=== PATIENT | female | born 1935 | race Caucasian/White ===

== ENCOUNTER 2022-01-03 12:40 | Emergency (ER) | payer OTHER ==
--- OUTSIDE RECORDS SUMMARY | 2022-01-03 12:43 | XMS REPORT | Continuity of Care Document ---
:1935 Author Organization [facility] t Address [address] [place] [address] Care Team Providers Name Role Phone Saroj LAMBERT Primary Care Physician Unavailable Benigno Attending Clinician Unavailable Donny Attending Clinician Unavailable RADIOLOGY Attending Clinician Unavailable Benigno Admitting Clinician Unavailable Donny Admitting Clinician Unavailable Saroj LAMBERT Admitting Clinician Unavailable Payers Payer Name Policy Type Policy Number Effective Date Expiration Date S luis antonio AETNA (MEDICARE [id number] 2020 REPLACEMENT HMO) 00:00:00 AETNA (HMO) [id number] 2020 00:00:00 [employer]ET[employer] MEDICARE ADV [id number] 2014 2021 00:00:00 00:00:00 Problems Condition Condition Condition Status Onset Resolution Last Treating Co mments Source Name Details Category Date Date Treatment Clinician Date COVID-19 Covid-19 Problem Active [place] [facility] 7-30 Family 00:00: Practic 00 e Multiple Multiple Problem Active [place] [facility] complicati Complicati 6-28 Fa lonny ons due to ons Due to 00:00: Pr actic type 2 Type 2 00 e diabetes Diabetes mellitus Mellitus Impaired Impaired Problem Active [place] [facility] mobility Mobility 5-03 Family 00:00: Practic 00 e Peripheral Peripheral Problem Active [facility] vascular Vascular 1-13 Family disease Disease 00:00: Practic 00 e Chronic Chronic Problem Active 2018-[address] [facility] kidney Kidney 0-30 Family disease Disease 00:00: Practic due to Due to 00 e hypertensi Hypertensi on on Type 2 Type 2 Problem Active 2018-[address] [facility] diabetes Diabetes 0-30 Family mellitus Mellitus 00:00: Practi c with with 00 e peripheral Peripheral angiopathy Angiopathy Chronic Chronic Problem Active 2018-[address] 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 kidney Kidney 2-20 Family disease Disease 00:00: Practic stage 3 Stage 3 00 e Gastroesop Gastroesop Problem Active [facility] hageal hageal 2-19 Family reflux Reflux 00:00: Practic disease Disease 00 e Cobalamin Cobalamin Problem Active Lori perla deficiency Deficiency 8-09 Fa lonny 00:00: Practic 00 e Hyperlipid Hyperlipid Problem Active [facility] emia emia 4-18 Family 00:00: Practic 00 e Gout Gout Problem Active [facility] 4-18 Family 00:00: Practic 00 e Allergies, Adverse Reactions, Alerts Allergy Allergy Status Severity Reaction(s) Onset Inactive Treating Comm ents Source Name Type Date Date Clinician STREPTOM DRUG Active ITCHING [facility] 3-18 ity of 00:00: [place] [id number] [facility] Streptom Allergy Active [facility] to Family substanc Practic e e Social History Smoking Status Start Date Stop Date Source Former Smoker [facility] Medications Ordered Filled Start Stop Current Ordering Indication Dosage Frequency Signature Comments Components Source Medication Medication Date Date Medication? Clinician (SIG) Name Name allopurinol allopurinol No allopurino [place] 300 mg 300 mg l 300 mg Family tablet TAKE tablet TAKE tablet Practic 1 TABLET BY 1 TABLET BY TAKE 1 e MOUTH ONCE MOUTH ONCE TABLET BY DAILY DAILY MOUTH ONCE DAILY diclofenac diclofenac No diclofenac [facility] 1 % topical 1 % topical 1 % F amily gel APPLY 2 gel APPLY 2 topical Practic GRAMS GRAMS gel APPLY e TOPICALLY TOPICALLY 2 GRAMS TO AFFECTED TO AFFECTED TOPICALLY AREA 4 AREA 4 TO TIMES DAILY TIMES DAILY AFFECTED AREA 4 TIMES DAILY lisinopril lisinopril No lisinopril [facility] 20 20 20 Family mg-hydrochl mg-hydrochl mg-hydroch Practic orothiazide orothiazide lorothiazi e 12.5 mg 12.5 mg de 12.5 mg tablet TAKE tablet TAKE tablet 1 TABLET BY 1 TABLET BY TAKE 1 MOUTH ONCE MOUTH ONCE TABLET BY DAILY DAILY MOUTH ONCE DAILY metformin metformin No metformin [facility] ER 500 mg ER 500 mg ER 500 mg Family tablet,exte tablet,exte tablet,ext Practic nded nded ended e release 24 release 24 release 24 hr Take 1 hr Take 1 hr Take 1 tablet tablet tablet twice a day twice a day twice a by oral by oral day by route with route with oral route meals for meals for with meals 90 days. 90 days. for 90 days. metoprolol metoprolol No metoprolol [facility] tartrate 25 tartrate 25 tartrate Family mg tablet mg tablet 25 mg Prac tic TAKE 1 TAKE 1 tablet e TABLET BY TABLET BY TAKE 1 MOUTH TWICE MOUTH TWICE TABLET BY DAILY DAILY MOUTH TWICE DAILY One Touch One Touch No One Touch [facility] Ultra Test Ultra Test Ultra Test Family Strips One Strips One Strips One Practic strip twice strip twice strip e a day a day twice a day simvastatin simvastatin No simvastati [facility] 40 mg 40 mg n 40 mg Family tablet TAKE tablet TAKE tablet Practic 1 TABLET BY 1 TABLET BY TAKE 1 e MOUTH ONCE MOUTH ONCE TABLET BY DAILY IN DAILY IN MOUTH ONCE THE EVENING THE EVENING DAILY IN THE EVENING Immunizations Ordered Immunization Filled Immunization Date Status Commen ts Source Name Name influenza, high-dose, influenza, high-dose, 2020-07-30 [facility] quadrivalent quadrivalent 11:57:00 Practice pneumococcal pneumococcal 2018-06-[address] [facility] polysaccharide PPV23 polysaccharide PPV23 11:02:00 Practice influenza, high dose influenza, high dose 2018-06-25 [facility] seasonal seasonal 10:41:00 Practice pneumococcal pneumococcal 2017-12-22 [facility] conjugate PCV 13 conjugate PCV 13 11:59:00 Pr actice Vital Signs Vital Name Observation Time Observation Value Comments Source Height 2021-04-26 00:00:00 61 [in_i] [facility] BMI (Body Mass 2021-04-26 00:00:00 29.9 kg/m2 Pk ariela [facility] Index) Practice Body Weight 2021-04-26 00:00:00 158 [lb_av] [facility] BP Diastolic 2021-01-28 00:00:00 78 mm[Hg] [facility] Height 2021-01-28 00:00:00 61 [in_i] [facility] BMI (Body Mass 2021-01-28 00:00:00 29.9 kg/m2 [facility] BP Systolic 2021-01-28 00:00:00 148 mm[Hg] [facility] Body Weight 2021-01-28 00:00:00 158 [lb_av] [facility] BP Diastolic 2020-07-31 00:00:00 78 mm[Hg] [facility] Height 2020-07-31 00:00:00 61 [in_i] [facility] BMI (Body Mass 2020-07-31 00:00:00 30.2 kg/m2 [facility] BP Systolic 2020-07-31 00:00:00 167 mm[Hg] [facility] Body Weight 2020-07-31 00:00:00 160 [lb_av] [facility] BP Diastolic 2019-10-26 00:00:00 75 mm[Hg] [facility] Height 2019-10-26 00:00:00 61 [in_i] [facility] BMI (Body Mass 2019-10-26 00:00:00 30.2 kg/m2 [facility] BP Systolic 2019-10-26 00:00:00 154 mm[Hg] [facility] Body Weight 2019-10-26 00:00:00 159.6 [lb_av] [facility] BP Diastolic 2019-06-01 00:00:00 80 mm[Hg] [facility] Height 2019-06-01 00:00:00 61 [in_i] [facility] BMI (Body Mass 2019-06-01 00:00:00 31 kg/m2 [facility] BP Systolic 2019-06-01 00:00:00 159 mm[Hg] [facility] Body Weight 2019-06-01 00:00:00 164.2 [lb_av] [facility] BP Diastolic 2019-02-09 00:00:00 76 mm[Hg] [facility] Height 2019-02-09 00:00:00 61 [in_i] [facility] BMI (Body Mass 2019-02-09 00:00:00 31.6 kg/m2 [facility] BP Systolic 2019-02-09 00:00:00 118 mm[Hg] [facility] Body Weight 2019-02-09 00:00:00 167 [lb_av] [facility] BP Diastolic 2018-11-16 00:00:00 62 mm[Hg] [facility] Height 2018-11-16 00:00:00 61 [in_i] [facility] BMI (Body Mass 2018-11-16 00:00:00 31.9 kg/m2 [facility] BP Systolic 2018-11-16 00:00:00 120 mm[Hg] [facility] Body Weight 2018-11-16 00:00:00 168.8 [lb_av] [facility] BP Diastolic 2017-12-22 00:00:00 70 mm[Hg] [facility] Height 2017-12-22 00:00:00 61 [in_i] [facility] BMI (Body Mass 2017-12-22 00:00:00 31.3 kg/m2 [facility] BP Systolic 2017-12-22 00:00:00 112 mm[Hg] [facility] Body Weight 2017-12-22 00:00:00 165.4 [lb_av] [facility] BP Diastolic 2017-11-16 00:00:00 84 mm[Hg] [facility] Height 2017-11-16 00:00:00 61 [in_i] [facility] BMI (Body Mass 2017-11-16 00:00:00 31 kg/m2 [facility] BP Systolic 2017-11-16 00:00:00 136 mm[Hg] [facility] Body Weight 2017-11-16 00:00:00 164 [lb_av] [facility] BP Diastolic 2017-09-23 00:00:00 82 mm[Hg] [facility] Height 2017-09-23 00:00:00 61 [in_i] [facility] BMI (Body Mass 2017-09-23 00:00:00 31.6 kg/m2 [facility] BP Systolic 2017-09-23 00:00:00 128 mm[Hg] [facility] Body Weight 2017-09-23 00:00:00 167 [lb_av] [facility] BP Diastolic 2017-05-05 00:00:00 84 mm[Hg] [facility] Height 2017-05-05 00:00:00 61 [in_i] [facility] BMI (Body Mass 2017-05-05 00:00:00 31.4 kg/m2 [facility] BP Systolic 2017-05-05 00:00:00 140 mm[Hg] [facility] Body Weight 2017-05-05 00:00:00 166 [lb_av] [facility] Procedures Procedure Date / Time Performed Performing Clinician Francine titus XR, ankle + foot 2019-10-26 00:00:00 [facility] trevor Practice X-RAY HIP UNLIATERAL 2019-10-26 00:00:00 [facility] (2-3 VIEWS) Practice MAMMO, screening, 2017-12-22 00:00:00 [facility] lonny bilateral Practice bone density 2017-12-22 [facility] Other 1997-09-28 00:00:00 [facility] Hysterectomy (Partial) 1991-09-28 00:00:00 [facility] Encounters Start End Encounter Admission Attending Care Care Encounter Source Date/Time Date/Time Type Type Clinicians Facility Department ID 2021-05-04 2021-05-04 Outpatient Garcia-Gor_M_ VFP VFP [id number] [facility] 05:24:00 05:24:00 WAG [id number] Family Practic e 2021-05-04 2021-05-04 Outpatient Garcia-Gor_M VFP VFP [id number] [facility] 05:24:00 05:24:00 [id number] Family Practic e 2021-05-04 2021-05-04 Outpatient Garcia-Gor_M VFP VFP [id number] [facility] 05:24:00 05:24:00 [id number] Family Practic e 2021-04-29 2021-04-29 Outpatient Garcia-Gor_M VFP VFP [id number] [facility] 03:29:00 03:29:00 [id number] Family Practic e 2021-04-26 2021-04-26 Outpatient Garcia-Gor_M VFP VFP [id number] [facility] 06:00:00 06:00:00 [id number] Family Practic e 2021-04-26 2021-04-26 [place] VFP [place] - [id number] [facility] 00:00:00 00:00:[address] [facility] Family Valerie MD: Medical - Prac tic [address] VM_HOU_Salome e [address] [place] [address] , Ph. 2021-04-20 2021-04-20 Outpatient Garcia-Gor_M VFP VFP [id number] [facility] 02:32:00 02:32:00 [id number] Family Practic e 2021-03-16 2021-03-16 Outpatient Garcia-Gor_M VFP VFP [id number] [facility] 03:20:00 03:20:00 [id number] Family Practic e 2021-02-10 2021-02-10 Outpatient Garcia-Gor_M VFP VFP [id number] [facility] 01:03:00 01:03:00 [id number] Family Practic e 2021-02-08 2021-02-08 Outpatient Garcia-Gor_M VFP VFP [id number] [facility] 09:54:00 09:54:00 [id number] Family Practic e 2021-01-30 2021-01-30 Outpatient Garcia-Gor_M VFP VFP [id number] [facility] 08:36:00 08:36:00 [id number] Family Practic e 2021-01-29 2021-01-29 Outpatient Garcia-Gor_M VFP VFP [id number] [facility] 04:48:00 04:48:00 [id number] Family Practic e 2021-01-28 2021-01-28 Outpatient Garcia-Gor_M VFP VFP [id number] [facility] 05:01:00 05:01:00 [id number] Family Practic e 2021-01-28 2021-01-28 Gloria O VFP [place] - [id number] [facility] 00:00:00 00:00:00 Ignacio, [facility] Carolynn hernández MD: [id number] Medical - Prac tic Shadow VM_HOU_Shad e [facility], [address], [place] [address] , Ph. 2021-01-23 2021-01-23 Outpatient Garcia-Gor_M VFP VFP [id number] [facility] 06:17:00 06:17:00 [id number] Family Practic e 2021-01-23 2021-01-23 Outpatient Garcia-Gor_M VFP VFP [id number] [facility] 06:17:00 06:17:00 [id number] Family Practic e 2021-01-23 2021-01-23 Outpatient Garcia-Gor_M_ VFP VFP [id number] [facility] 06:17:00 06:17:00 WAG [id number] Family Practic e 2021-01-16 2021-01-16 Outpatient Garcia-Gor_M VFP VFP [id number] [facility] 10:51:00 10:51:00 [id number] Family Practic e 2021-01-16 2021-01-16 Outpatient Garcia-Gor_M VFP VFP [id number] [facility] 10:51:00 10:51:00 [id number] Family Practic e 2021-01-04 2021-01-04 Outpatient Garcia-Gor_M_ VFP VFP [id number] [facility] 04:08:00 04:08:00 WAG [id number] Family Practic e 2020-09-27 2020-09-27 Outpatient Garcia-Gor_M_ VFP VFP [id number] [facility] 03:18:00 03:18:00 WAG [id number] Family Practic e 2020-09-05 2020-09-05 Outpatient Garcia-Gor_M_ VFP VFP [id number] [facility] 05:24:00 05:24:00 WAG [id number] Family Practic e 2020-09-05 2020-09-05 Outpatient Garcia-Gor_M VFP VFP [id number] [facility] 05:24:00 05:24:00 [id number] Family Practic e 2020-08-06 2020-08-06 Outpatient Garcia-Gor_M_ VFP VFP [id number] [facility] 12:35:00 12:35:00 WAG [id number] Family Practic e 2020-08-03 2020-08-03 Outpatient Garcia-Gor_M_ VFP VFP [id number] [facility] 09:29:00 09:29:00 WAG [id number] Family Practic e 2020-08-02 2020-08-02 Outpatient Garcia-Gor_M_ VFP VFP [id number] [facility] 02:15:00 02:15:00 WAG [id number] Family Practic e 2020-08-01 2020-08-01 Outpatient Garcia-Gor_M_ VFP VFP [id number] [facility] 12:40:00 12:40:00 WAG [id number] Family Practic e 2020-07-31 2020-07-31 Outpatient Garcia-Gor_M_ VFP VFP [id number] [facility] 03:53:00 03:53:00 [facility] [id number] Family Practic e 2020-07-31 2020-07-31 Gloria O VFP [place] - [id number] [facility] 00:00:00 00:00:00 Mateo Lambert Carolynn hernández MD: [id number] Medical - Pract [facility], [facility] [address], ([facility]) [place] [address] , Ph. 2019-11-30 2019-11-30 Outpatient R RADIOLOGY [facility] [id number] Univers 11:39:01 23:59:00 [facility] 2019-11-30 2019-11-30 Outpatient R RADIOLOGY [facility] [id number] Univers 11:45:00 11:45:00 [facility] 2019-11-17 2019-11-17 Outpatient Garcia-Gor_M VFP VFP [id number] [facility] 04:25:00 04:25:00 [id number] Family Practic e 2019-11-17 2019-11-17 Outpatient Garcia-Gor_M VFP VFP [id number] [facility] 04:25:00 04:25:00 [id number] Family Practic e 2019-11-17 2019-11-17 Outpatient Garcia-Gor_M VFP VFP [id number] [facility] 04:25:00 04:25:00 [id number] Family Practic e 2019-11-17 2019-11-17 Outpatient Garcia-Gor_M VFP VFP [id number] [facility] 04:25:00 04:25:00 [id number] Family Practic e 2019-11-17 2019-11-17 Outpatient Garcia-Gor_M VFP VFP [id number] [facility] 04:25:00 04:25:00 [id number] Family Practic e 2019-11-11 2019-11-11 Outpatient Garcia-Gor_M VFP VFP [id number] [facility] 04:50:00 04:50:00 [id number] Family Practic e 2019-10-28 2019-10-28 Outpatient Garcia-Gor_M_ VFP VFP [id number] [facility] 04:52:00 04:52:00 [facility] [id number] Family Practic e 2019-10-28 2019-10-28 Outpatient Garcia-Gor_M VFP VFP [id number] [facility] 04:52:00 04:52:00 [id number] Family Practic e 2019-10-26 2019-10-26 Outpatient Ignacio_M_ VFP VFP [id number] [facility] 05:45:00 05:45:00 [facility] [id number] Family Practic e 2019-10-26 2019-10-26 Outpatient Ignacio_M VFP VFP [id number] [facility] 05:45:00 05:45:00 [id number] Family Practic e 2019-10-26 2019-10-26 Gloria O VFP [place] - [id number] [facility] 00:00:00 00:00:[address] [facility] Carolynn hernández MD: [id number] Medical - Pract ic [place] _[facility], [address] [place] [address], ([facility]) [place] [address] , Ph. 2019-06-01 2019-06-01 Gloria O VFP [place] - [id number] [facility] 00:00:00 00:00:[address] [facility] Carolynn hernández MD: [id number] Family Practic [place], Practice - e [address], V[place]-[facility] [place] [address] , Ph. 2019-02-09 2019-02-09 Gloria O VFP [place] - [id number] [facility] 00:00:00 00:00:[address] [facility] Carolynn hernández MD: 9430 Family Practic [place], Practice - e [address], VFP-[facility] [address] , Ph. 2018-11-16 2018-11-16 Gloria O VFP [place] - [id number] [facility] 00:00:00 00:00:[address] [facility] aCrolynn hernández MD: 9430 Family Practic [place], Practice - e [address], [facility] [place] [address] , Ph. 2017-12-22 2017-12-22 Gloria O VFP [place] - [id number] [facility] 00:00:00 00:00:[address] [facility] Carolynn hernández MD: 9430 Family Practic [place], Practice - e [address], [facility] [place] [address] , Ph. 2017-11-16 2017-11-16 Gloria Kyle VFP [place] - [id number] [facility] 00:00:00 00:00:00 Ignacio Mateo hernández MD: 9430 [facility], Practice - e [address], [place] [address] , Ph. 2017-09-23 2017-09-23 Gloria Kyle VFP [place] - [id number] [facility] 00:00:00 00:00:[address] [facility] Carolynn hernández MD: 94[address] [facility], Practice - e [address], [place] [address] , Ph. 2017-05-05 2017-05-05 Gloria Kyle VFP [place] - [id number] [facility] 00:00:00 00:00:00 Ignacio Mateo hernández MD: 9430 [facility], Practice - e [address], [place] [address] , Ph. Results Test Description Test Time Test Comments Results Result Comments Source Comprehensive metabolic 2000 panel - Serum or Plasma 2017-10 17:31:00 Test Item Value Reference Range Interpretation Comme nts ALT (test code = ALT) 15 U/L 0-55 AST (test code = AST) 18 U/L 5-34 BUN (test code = BUN) 24.0 mg/dL 9.8-20.1 H alk phos (test code = alk phos) 47 unit/L 40-150 glucose (test code = glucose) 122 mg/dL 70-99 H albumin (test code = albumin) 3.8 g/dL 3.5-5.0 creatinine (test code = creatinine) 1.03 mg/dL 0.57-1.11 eGFR non- (test code = eGFR 51 mL/min/1.73m2 >60 L non-) total bilirubin (test code = total bilirubin) 0.4 mg/dL 0.2-1.2 eGFR - (test code = eGFR - >60 >6 0 zambian) sodium (test code = sodium) 137 mEq/L 136-145 potassium (test code = potassium) 5.0 mEq/L 3.5-5.1 chloride (test code = chloride) 102 mmol/L 98-107 total protein (test code = total protein) 7.5 g/dL 6.4-8.3 calcium (test code = calcium) 9.5 mg/dL 8.4-10.2 CO2 (test code = CO2) 22.0 mmol/L 23.0-31.0 L anion gap (test code = anion gap) 13 [facility] - Serum or [id number] 17:31:00 Test Item Value Reference Range Interpretation Comments HDL (test code = HDL) 36 mg/dL 40-60 L triglyceride (test code = 263 mg/dL 0-149 H triglyceride) VLDL calc. (test code = VLDL calc.) 53 mg/dL cholesterol/HDL ratio (test code = 6.0 mg/dL cholesterol/HDL ratio) non-HDL cholesterol calc. (test 179 mg/dL 0-160 H code = non-HDL cholesterol calc.) cholesterol (test code = 215 mg/dL 0-199 H cholesterol) LDL calc. (test code = LDL calc.) 126 mg/dL 0-130 [facility] [Mass/volume] in Serum or [id number] 17:31:00 Test Item Value Reference Range Interpretation Comments uric acid (test code = uric acid) 5.7 mg/dL 2.6-6.0 [facility] A1c/Hemoglobin.total in [id number] 17:25:00 Test Item Value Reference Range Interpretation Comments A1C w/EAG (test code = A1C w/EAG) 7.0 % 1.0-5.7 H average blood glucose (test code = 154 mg/dL average blood glucose) [facility] 1999 panel - Serum or Plasma 2017-09-24 14:35:00 Test Item Value Reference Range Interpretation Comments ALT (test code = ALT) 20 U/L 0-55 AST (test code = AST) 19 U/L 5-34 BUN (test code = BUN) 14.0 mg/dL 9.8-20.1 alk phos (test code = alk phos) 53 unit/L 40-150 glucose (test code = glucose) 114 mg/dL 70-99 H albumin (test code = albumin) 3.9 g/dL 3.5-5.0 creatinine (test code = 0.90 mg/dL 0.57-1.11 creatinine) eGFR non- (test >60 >60 code = eGFR non-) total bilirubin (test code = 0.3 mg/dL 0.2-1.2 total bilirubin) eGFR - (test >60 >60 code = eGFR - ) sodium (test code = sodium) 140 mEq/L 136-145 potassium (test code = potassium) 5.2 mEq/L 3.5-5.1 H chloride (test code = chloride) 104 mmol/L 98-107 total protein (test code = total 7.6 g/dL 6.4-8.3 protein) calcium (test code = calcium) 9.6 mg/dL 8.4-10.2 CO2 (test code = CO2) 24.7 mmol/L 23.0-31.0 anion gap (test code = anion gap) 11 calc [facility] panel - Serum or [id number] 14:35:00 Test Item Value Reference Range Interpretation Comments HDL (test code = HDL) 46 mg/dL 40-60 triglyceride (test code = 195 mg/dL 0-149 H triglyceride) VLDL calc. (test code = VLDL calc.) 39 mg/dL cholesterol/HDL ratio (test code = 2.9 mg/dL cholesterol/HDL ratio) non-HDL cholesterol calc. (test 89 mg/dL 0-160 code = non-HDL cholesterol calc.) cholesterol (test code = 135 mg/dL 0-199 cholesterol) LDL calc. (test code = LDL calc.) 50 mg/dL 0-130 [facility] HospitalCobalamin (Vitamin B12) [Mass/volume] in Serum or Plasma 2017-09-24 14:35:00 Test Item Value Reference Range Interpretation Comments vitamin B12 (test code = vitamin 264 pg/mL 213-816 B12) [facility] A1c/Hemoglobin.total in [id number] 11:27:00 Test Item Value Reference Range Interpretation Comments A1C w/EAG (test code = A1C w/EAG) 6.7 % 1.0-5.7 H average blood glucose (test code = 146 mg/dL average blood glucose) [facility] 2000 panel - Serum or Plasma 2017-05-06 09:58:00 Test Item Value Reference Range Interpretation Comments ALT (test code = ALT) 11 U/L 0-55 AST (test code = AST) 14 U/L 5-34 BUN (test code = BUN) 13.4 mg/dL 9.8-20.1 alk phos (test code = alk 51 unit/L 40-150 phos) glucose (test code = 132 mg/dL 70-99 H glucose) albumin (test code = 3.9 g/dL 3.5-5.0 albumin) creatinine (test code = 0.93 mg/dL 0.57-1.11 creatinine) eGFR non- 58 mL/min/1.73m2 >60 L (test code = eGFR non-) total bilirubin (test code = 0.3 mg/dL 0.2-1.2 total bilirubin) eGFR - >60 >60 (test code = eGFR - ) sodium (test code = sodium) 137 mEq/L 136-145 potassium (test code = 4.6 mEq/L 3.5-5.1 potassium) chloride (test code = 101 mmol/L 98-107 chloride) total protein (test code = 7.3 g/dL 6.4-8.3 total protein) calcium (test code = 9.5 mg/dL 8.4-10.2 calcium) CO2 (test code = CO2) 25.2 mmol/L 23.0-31.0 anion gap (test code = anion 11 calc gap) [facility] - Serum or [id number] 09:58:00 Test Item Value Reference Range Interpretation Comments HDL (test code = HDL) 39 mg/dL 40-60 L triglyceride (test code = 189 mg/dL 0-149 H triglyceride) VLDL calc. (test code = VLDL calc.) 38 mg/dL cholesterol/HDL ratio (test code = 3 mg/dL cholesterol/HDL ratio) non-HDL cholesterol calc. (test 93 mg/dL 0-160 code = non-HDL cholesterol calc.) cholesterol (test code = 132 mg/dL 0-199 cholesterol) LDL calc. (test code = LDL calc.) 55 mg/dL 0-130 [facility] [id number] [Mass/volume] in Serum or Plasma 2017-05-06 09:58:00 Test Item Value Reference Range Interpretation Comments vitamin D 25OH (test code = 33.7 NG/mL 30.0-96.0 vitamin D 25OH) [facility] [Mass/volume] in Serum or Plasma 2017-05-06 09:58:00 Test Item Value Reference Range Interpretation Comments vitamin B12 (test code = vitamin 196 pg/mL 213-816 L B12) [facility]rate [Mass/volume] in Serum or [id number] 09:58:00 Test Item Value Reference Range Interpretation Comments uric acid (test code = uric acid) 5.6 mg/dL 2.6-6.0 [facility] [Mass/volume] in Serum or [id number] 06:34:00 Test Item Value Reference Range Interpretation Comments magnesium (test code = magnesium) 1.9 mg/dL 1.5-2.5 [facility]
--- NOTE | 2022-01-03 14:33 | RAD REPORT ---
EXAM DESCRIPTION: RAD - Shoulder Left 2 View - 01/03/2022 2:13 pm CLINICAL HISTORY: PAIN COMPARISON: No comparisons TECHNIQUE: Internal and external rotation views of the left shoulder were obtained. FINDINGS: There is no fracture or dislocation. AC joint degenerative changes are present with inferi shukri directed spurs from the clavicle head and the acromion. Additional spurring seen along the under surface of the acromion. Minimal degenerative spurring changes are seen superior margin of the greate r tuberosity. Acromial humeral joint space is normal with no abnormal soft tissue calcification. Ribs and parenchym a of the upper left chest unremarkable as well. No acute or suspicious findings. 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 No acute finding.
--- NOTE | 2022-01-03 15:48 | ER ---
Nurse's Notes [facility] Name: Edna Eli Age: 86 yrs Sex: Female : 1935 Arrival Date: 01/03/2022 Time: 12:45 Bed 12 Private MD: Sharif Osborne E Diagnosis: Pain in left shoulder Presentation: 01/03 13:13 Chief complaint: Patient states: "I was bent over putting a bowl in the cupboard and ab2 lost my balance and landed on my shoulder." Pt c/o left shoulder pain. Pt denies hitting her head or LOC. Pt is not on a blood thinner. Pt states she cannot raise her left arm. Coronavirus screen: Vaccine status: Patient reports being unvaccinated. Client denies travel out of the [place] in the last 14 days. At this time, the client does not indicate any symptoms associated with coronavirus-19. Ebola Screen: Patient negative for fever greater than or equal to 101.5 degrees Fahrenheit, and additional compatible Ebola Virus Disease symptoms Patient denies exposure to infectious person. Patient denies travel to an Ebola-affected area in the 21 days before illness onset. No symptoms or risks identified at this time. Initial Sepsis Screen: Does the patient meet any 2 criteria? No. Patient's initial sepsis screen is negative. Does the patient have a suspected source of infection? No. Patient's initial sepsis screen is negative. Risk Assessment: Do you want to hurt yourself or someone else? Patient reports no desire to harm self or others. Onset of symptoms is unknown. 13:13 Method Of Arrival: Ambulatory ab2 13:13 Acuity: HOMAR 4 ab2 Triage Assessment: 13:16 General: Appears in no apparent distress. uncomfortable, Behavior is calm, cooperative, ab2 appropriate for age. Pain: Complains of pain in anterior aspect of left shoulder. Neuro: Level of Consciousness is awake, alert, obeys commands, Oriented to person, place, time, situation, Appropriate for age Lettuce Trimmer are equal bilaterally Moves all extremities. Gait is steady, Speech is normal, Facial symmetry appears normal. Cardiovascular: No deficits noted. Denies chest pain, shortness of breath. Respiratory: Airway is patent Respiratory effort is even, unlabored, Respiratory pattern is regular, symmetrical. GI: No deficits noted. No signs and/or symptoms were reported involving the gastrointestinal system. : No deficits noted. No signs and/or symptoms were reported regarding the genitourinary system. Derm: Skin is intact, Skin is pink, warm \\T\\ dry. Historical: - Allergies: 13:15 Streptomycin; ab2 - PMHx: 13:15 Diabetes mellitus; Hypercholesterolemia; Hypertensive disorder; Gout; ab2 - PSHx: 13:15 Total abdominal hysterectomy; ab2 - Immunization history:: Adult Immunizations up to date. - Social history:: Smoking status: Patient denies any tobacco usage or history of. Screenin:17 Abuse screen: Denies threats or abuse. Denies injuries from another. Nutritional ss screening: No deficits noted. Tuberculosis screening: Never had TB. Fall Risk Fall in past 12 months (25 points). Assessment: 15:30 General: Appears comfortable, Behavior is calm, cooperative. Pain: Complains of pain in ss anterior aspect of left shoulder Pain currently is 5 out of 10 on a pain scale. Neuro: Level of Consciousness is awake, alert, obeys commands, Oriented to person, place, time, situation. Cardiovascular: Capillary refill < 3 seconds is brisk. Respiratory: Airway is patent Respiratory effort is even, unlabored. GI: No signs and/or symptoms were reported involving the gastrointestinal system. Derm: Skin is intact, is healthy with good turgor, Skin is pink, warm \\T\\ dry. normal. 16:06 Reassessment: Patient appears in no apparent distress at this time. Patient and/or ss family updated on plan of care and expected duration. Pain level reassessed. Patient denies pain at this time. Vital Signs: 13:13 BP 146 / 63; Pulse 61; Resp 17; Temp 97.7; Pulse Ox 98% on R/A; Weight 68.04 kg; Height ab2 5 ft. 1 in. (154.94 cm); Pain 5/10; 13:13 Body Mass Index 28.34 (68.04 kg, 154.94 cm) ab2 ED Course: 12:45 Patient arrived in ED. ds1 12:46 Sharif Osborne MD is Private Physician. ds1 13:15 Triage completed. ab2 13:17 Arm band placed on right wrist. ab2 14:15 XRAY Shoulder LEFT 2 view In Process Unspecified. EDMS 14:30 Derick Dang PA is PHCP. cp 14:31 Derick Paz MD is Attending Physician. cp 15:17 Patient has correct armband on for positive identification. Bed in low position. Call ss light in reach. 15:17 No provider procedures requiring assistance completed. Patient did not have IV access ss during this emergency room visit. Sling applied to left arm. 15:44 Kerri Ceron RN is Primary Nurse. ss 15:47 Bjorn De La Paz MD is Referral Physician. cp Administered Medications: 16:06 Not Given (Patient Refused): Ibuprofen 800 mg PO once ss 16:06 Not Given (Patient Refused): Tylenol 1000 mg PO once ss Outcome: 15:17 Discharged to home ambulatory, with friend. ss 15:17 Condition: good 15:17 Discharge instructions given to patient, friend, Instructed on discharge instructions, follow up and referral plans. Demonstrated understanding of instructions, follow-up care, medications, Prescriptions given X 1. 15:48 Discharge ordered by MD. cp 16:07 Patient left the ED. ss Signatures: Dispatcher [facility] Melvi Liao ds1 Kerri Ceron RN RN Derick Dang PA PA Tank Padgett2
--- NOTE | 2022-01-03 15:48 | EDPHYS ---
Physician Documentation [facility] Name: Edna Eli Age: 86 yrs Sex: Female : 1935 Arrival Date: 01/03/2022 Time: 12:45 Bed 12 Private MD: Sharif Osborne E ED Physician Derick Paz HPI: 01/03 15:40 This 86 yrs old Female presents to ER via Ambulatory with complaints of Fall Injury. cp 15:40 Details of fall: The patient fell from an upright position, while standing. Onset: The cp symptoms/episode began/occurred yesterday. Associated injuries: The patient sustained left shoulder. Severity of symptoms: in the emergency department the symptoms are unchanged, despite home interventions. Historical: - Allergies: 13:15 Streptomycin; ab2 - PMHx: 13:15 Diabetes mellitus; Hypercholesterolemia; Hypertensive disorder; Gout; ab2 - PSHx: 13:15 Total abdominal hysterectomy; ab2 - Immunization history:: Adult Immunizations up to date. - Social history:: Smoking status: Patient denies any tobacco usage or history of. ROS: 15:42 Neck: Negative for pain with movement, pain at rest, tenderness, bony tenderness. cp 15:42 Back: Negative for pain at rest, pain with movement. 15:42 MS/extremity: Positive for decreased range of motion, pain, tenderness, of the left shoulder, Negative for deformity, paresthesias. 15:42 Neuro: Negative for altered mental status, headache, loss of consciousness, syncope, weakness. Exam: 15:44 Head/Face: Normocephalic, atraumatic. cp 15:44 Constitutional: The patient appears in no acute distress, alert, awake, non-diaphoretic, non-toxic, well developed, well nourished. 15:44 Neck: C-spine: vertebral tenderness, is not appreciated, crepitus, is not appreciated, ROM/movement: is normal, is supple, without pain, no range of motions limitations. 15:44 Chest/axilla: Inspection: normal, Palpation: is normal, no crepitus, no tenderness. 15:44 Cardiovascular: Rate: normal, Rhythm: regular, Pulses: Pulses are 2+ in left radial artery. 15:44 Respiratory: the patient does not display signs of respiratory distress, Respirations: normal, no use of accessory muscles, no retractions, labored breathing, is not present, Breath sounds: are clear throughout, no decreased breath sounds, no stridor, no wheezing. 15:44 Abdomen/GI: Exam negative for discomfort, distension, guarding, Inspection: abdomen appears normal. 15:44 Back: pain, is absent, ROM is normal. 15:44 Musculoskeletal/extremity: Extremities: grossly normal except: noted in the lateral and posterior left shoulder: pain, tenderness, There is no evidence of deformity, ROM: limited passive range of motion, in the left shoulder, limited passive range of motion due to pain, in the left shoulder. Vital Signs: 13:13 BP 146 / 63; Pulse 61; Resp 17; Temp 97.7; Pulse Ox 98% on R/A; Weight 68.04 kg; Height ab2 5 ft. 1 in. (154.94 cm); Pain 5/10; 13:13 Body Mass Index 28.34 (68.04 kg, 154.94 cm) ab2 MDM: 15:17 Patient medically screened. [facility] 15:30 Differential diagnosis: closed head injury, contusion, fracture, multiple trauma. cp 15:48 Data reviewed: vital signs, nurses notes, radiologic studies, plain films. cp 15:48 Test interpretation: by ED physician or midlevel provider: plain radiologic studies. cp Counseling: I had a detailed discussion with the patient and/or guardian regarding: the historical points, exam findings, and any diagnostic results supporting the discharge/admit diagnosis, radiology results, the need for outpatient follow up, a orthopedic surgeon, to return to the emergency department if symptoms worsen or persist or if there are any questions or concerns that arise at home. Response to treatment: the patient's symptoms have mildly improved after treatment, and as a result, I will discharge patient. 01/03 13:18 Order name: XRAY Shoulder LEFT 2 view; Complete Time: 15:11 ab2 01/03 15:30 Interpretation: Report reviewed. cp 01/03 15:40 Order name: Sling; Complete Time: 16:00 cp Administered Medications: 16:06 Not Given (Patient Refused): Ibuprofen 800 mg PO once ss 16:06 Not Given (Patient Refused): Tylenol 1000 mg PO once ss Disposition Summary: 01/03/22 15:48 Discharge Ordered Location: Home cp Problem: new cp Symptoms: have improved cp Condition: Stable cp Diagnosis - Pain in left shoulder cp Followup: cp - With: Bjorn De La Paz MD - When: 5 - 6 days - Reason: Recheck today's complaints Discharge Instructions: - Discharge Summary Sheet cp - Shoulder Pain cp - Shoulder Range of Motion Exercises cp Forms: - Medication Reconciliation Form cp - Thank You Letter cp - Antibiotic Education cp - Prescription Opioid Use cp Prescriptions: - Ibuprofen 800 mg Oral Tablet - take 1 tablet by ORAL route every 8 hours As needed take with food; 30 tablet; cp Refills: 0, Product Selection Permitted Addendum: 01/09/2022 18:48 Co-signature as Attending Physician, Derick Paz MD I agree with the assessment and c vilchis plan of care. Signatures: Dispatcher [employer] EDLety Bauer, FIREARMS MODEL MAKER-C FI[employer]AR[employer]DEL MAKER-Derick Landeros MD MD cha Page, Corey, PA PA Tank Padgett Shelby RN ss
[2022-01-03 18:44] VITALS: BP 146/63; TEMP 97.7; O2SAT 98
== END 2022-01-03 16:07 | disposition home or self-care (01) ==
LOC: ER 12:40
DX: M25.512 Pain in left shoulder (principal); I10 Essential (primary) hypertension; E11.9 Type 2 diabetes mellitus without complications; Z88.8 Allergy status to other drugs, medicaments and biological substances
CPT/HCPCS: 99283

== ENCOUNTER 2024-07-05 19:12 | Emergency (ER) | payer OTHER ==
--- OUTSIDE RECORDS SUMMARY | 2024-07-05 19:15 | XMS REPORT | Continuity of Care Document ---
Author Name Unknown Address [address] [facility] [address] [place], [place] [id number] [place] [address] [facility] Address [address] [facility] [address] [place] [address] Care Team Providers Care Jewelry Jobber Name Role Phone RONY LAMBERT Primary Care Physician Unava ilable Donny Attending Clinician Unavailable Benigno Attending Clinician Unavailable RADIOLOGY Attending Clinician Unavailable Donny Admitting Clinician Unavailable Benigno Admitting Clinician Unavailable RONY LAMBERT Admitting Clinician Unavaila ble Payers Payer Name Policy Type Policy Number Effective Date Expirati on Date Source [employer] (MEDICARE REPLACEMENT HMO) [id number] 2020 00:00:00 [employer] (HMO) [id number] 2020 00:00:00 [employer] MEDICARE ADV [id number] 00:00:00 2021 00:00:00 Problems Condition Name Condition Details Condition Category Status Onset Date Resolution Date Last Treatment Date Treating Clinician Comments Source COVID-19 Covid-19 Problem Active 04-26 00:00: 00 [facility] Multiple complicati ons due to type 2 diabetes mellitus Multiple Complicati ons Due to Type 2 Diabetes Mellitus Problem Active 03-25 00:00: 00 [facility] Impaired mobility Impaired Mobility Problem Active 01-28 00:00: 00 [facility] Peripheral vascular disease Peripheral Vascular Disease Problem Active - 00:00: 00 [facility] Chronic kidney disease due to hypertensi on Chronic Kidney Disease Due to Hypertensi on Problem Active 2018-09 00:00: 00 [facility] 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 Type 2 Diabetes Mellitus with Peripheral Angiopathy Problem Active 2018-09 00:00: 00 [facility] Chronic kidney disease due to type 2 diabetes mellitus Chronic Kidney Disease Due to Type 2 Diabetes Mellitus Problem Active 2018-09 00:00: 00 [facility] Diabetic peripheral neuropathy Diabetic Peripheral Neuropathy Problem Active 06-01 00:00: 00 [facility] Senile purpura Senile Purpura Problem Active 06-25 00:00: 00 [facility] Chronic kidney disease stage 3 Chronic Kidney Disease Stage 3 Problem Active 11-17 00:00: 00 [facility] Gastroesop hageal reflux disease Gastroesop hageal Reflux Disease Problem Active 11-16 00:00: 00 [facility] Cobalamin deficiency Cobalamin Deficiency Problem Active 05-06 00:00: 00 [facility] Hyperlipid emia Hyperlipid emia Problem Active 01-13 00:00: 00 [facility] Gout Gout Problem Active 01-13 00:00: 00 [facility] Allergies, Adverse Reactions, Alerts Allergy Name Allergy Type Status Severity Reaction(s) Onset Date Inactive Date Treating Clinician Comments Source STREPTOM YCIN DRUG INGREDI Active ITCHING 12-13 00:00: 00 [facility] Streptom ycin Allergy to substanc e Active [facility] Social History Smoking Status Start Date Stop Date Source Former Smoker [facility] Medications Ordered Medication Name Filled Medication Name Start Date Stop Date Current Medication? Ordering Clinician Indication Dosage Frequency Signature (SIG) Comments Components Source allopurinol 300 mg tablet TAKE 1 TABLET BY MOUTH ONCE DAILY allopurinol 300 mg tablet TAKE 1 TABLET BY MOUTH ONCE DAILY No allopurino l 300 mg tablet TAKE 1 TABLET BY MOUTH ONCE DAILY [facility] diclofenac 1 % topical gel APPLY 2 GRAMS TOPICALLY TO AFFECTED AREA 4 TIMES DAILY diclofenac 1 % topical gel APPLY 2 GRAMS TOPICALLY TO AFFECTED AREA 4 TIMES DAILY No diclofenac 1 % topical gel APPLY 2 GRAMS TOPICALLY TO AFFECTED AREA 4 TIMES DAILY [facility] lisinopril 20 mg-hydrochl orothiazide 12.5 mg tablet TAKE 1 TABLET BY MOUTH ONCE DAILY lisinopril 20 mg-hydrochl orothiazide 12.5 mg tablet TAKE 1 TABLET BY MOUTH ONCE DAILY No lisinopril 20 mg-hydroch lorothiazi de 12.5 mg tablet TAKE 1 TABLET BY MOUTH ONCE DAILY [facility] metformin ER 500 mg tablet,exte nded release 24 hr Take 1 tablet twice a day by oral route with meals for 90 days. metformin ER 500 mg tablet,exte nded release 24 hr Take 1 tablet twice a day by oral route with meals for 90 days. No metformin ER 500 mg tablet,ext ended release 24 hr Take 1 tablet twice a day by oral route with meals for 90 days. [facility] metoprolol tartrate 25 mg tablet TAKE 1 TABLET BY MOUTH TWICE DAILY metoprolol tartrate 25 mg tablet TAKE 1 TABLET BY MOUTH TWICE DAILY No metoprolol tartrate 25 mg tablet TAKE 1 TABLET BY MOUTH TWICE DAILY [facility] One Touch Ultra Test Strips One strip twice a day One Touch Ultra Test Strips One strip twice a day No One Touch Ultra Test Strips One strip twice a day [facility] simvastatin 40 mg tablet TAKE 1 TABLET BY MOUTH ONCE DAILY IN THE EVENING simvastatin 40 mg tablet TAKE 1 TABLET BY MOUTH ONCE DAILY IN THE EVENING No simvastati n 40 mg tablet TAKE 1 TABLET BY MOUTH ONCE DAILY IN THE EVENING [facility] Vital Signs Vital Name Observation Time Observation Value Comments S ource Height 2021-04-26 00:00:00 61 [in_i] [facility] BMI (Body Mass Index) 2021-04-26 00:00:00 29.9 kg/m2 [facility] Body Weight 2021-04-26 00:00:00 158 [lb_av] [facility] BP Diastolic 2021-01-28 00:00:00 78 mm[Hg] [facility] Height 2021-01-28 00:00:00 61 [in_i] [facility] BMI (Body Mass Index) 2021-01-28 00:00:00 29.9 kg/m2 [facility] BP Systolic 2021-01-28 00:00:00 148 mm[Hg] [facility] Body Weight 2021-01-28 00:00:00 158 [lb_av] [facility] BP Diastolic 2020-07-31 00:00:00 78 mm[Hg] [facility] Height 2020-07-31 00:00:00 61 [in_i] [facility] BMI (Body Mass Index) 2020-07-31 00:00:00 30.2 kg/m2 [facility] BP Systolic 2020-07-31 00:00:00 167 mm[Hg] [facility] Body Weight 2020-07-31 00:00:00 160 [lb_av] [facility] BP Diastolic 2019-10-26 00:00:00 75 mm[Hg] [facility] Height 2019-10-26 00:00:00 61 [in_i] [facility] BMI (Body Mass Index) 2019-10-26 00:00:00 30.2 kg/m2 [facility] BP Systolic 2019-10-26 00:00:00 154 mm[Hg] [facility] Body Weight 2019-10-26 00:00:00 159.6 [lb_av] [facility] BP Diastolic 2019-06-01 00:00:00 80 mm[Hg] [facility] Height 2019-06-01 00:00:00 61 [in_i] [facility] BMI (Body Mass Index) 2019-06-01 00:00:00 31 kg/m2 [facility] BP Systolic 2019-06-01 00:00:00 159 mm[Hg] [facility] Body Weight 2019-06-01 00:00:00 164.2 [lb_av] [facility] BP Diastolic 2019-02-09 00:00:00 76 mm[Hg] [facility] Height 2019-02-09 00:00:00 61 [in_i] [facility] BMI (Body Mass Index) 2019-02-09 00:00:00 31.6 kg/m2 [facility] BP Systolic 2019-02-09 00:00:00 118 mm[Hg] [facility] Body Weight 2019-02-09 00:00:00 167 [lb_av] [facility] BP Diastolic 2018-11-16 00:00:00 62 mm[Hg] [facility] Height 2018-11-16 00:00:00 61 [in_i] [facility] BMI (Body Mass Index) 2018-11-16 00:00:00 31.9 kg/m2 [facility] BP Systolic 2018-11-16 00:00:00 120 mm[Hg] [facility] Body Weight 2018-11-16 00:00:00 168.8 [lb_av] [facility] BP Diastolic 2017-12-22 00:00:00 70 mm[Hg] [facility] Height 2017-12-22 00:00:00 61 [in_i] [facility] BMI (Body Mass Index) 2017-12-22 00:00:00 31.3 kg/m2 [facility] BP Systolic 2017-12-22 00:00:00 112 mm[Hg] [facility] Body Weight 2017-12-22 00:00:00 165.4 [lb_av] [facility] BP Diastolic 2017-11-16 00:00:00 84 mm[Hg] [facility] Height 2017-11-16 00:00:00 61 [in_i] [facility] BMI (Body Mass Index) 2017-11-16 00:00:00 31 kg/m2 [facility] BP Systolic 2017-11-16 00:00:00 136 mm[Hg] [facility] Body Weight 2017-11-16 00:00:00 164 [lb_av] [facility] BP Diastolic 2017-09-23 00:00:00 82 mm[Hg] [facility] Height 2017-09-23 00:00:00 61 [in_i] [facility] BMI (Body Mass Index) 2017-09-23 00:00:00 31.6 kg/m2 [facility] BP Systolic 2017-09-23 00:00:00 128 mm[Hg] [facility] Body Weight 2017-09-23 00:00:00 167 [lb_av] [facility] BP Diastolic 2017-05-05 00:00:00 84 mm[Hg] [facility] Height 2017-05-05 00:00:00 61 [in_i] [facility] BMI (Body Mass Index) 2017-05-05 00:00:00 31.4 kg/m2 [facility] BP Systolic 2017-05-05 00:00:00 140 mm[Hg] [facility] Body Weight 2017-05-05 00:00:00 166 [lb_av] [facility] Procedures Procedure Date / Time Performed Performing Clinicia n Source XR, ankle + foot 2019-10-26 00:00:[address] [facility] X-RAY HIP UNLIATERAL (2-3 VIEWS) 2019-10-26 00:00:00 [facility] MAMMO, screening, bilateral 2017-12-22 00:00:00 [facility] bone density 2017-12-22 00:00:00 [facility] Other 1997-09-28 00:00:00 [facility] Hysterectomy (Partial) 1991-09-28 00:00:00 [facility] Encounters Start Date/Time End Date/Time Encounter Type Admission Type Attending Clinicians Care Facility Care Department Encounter ID Source 2022-02-03 08:07:02 Outpatient [facility] [id number] [facility] 2022-01-28 10:21:03 Outpatient [facility] [id number] [facility] 2022-01-27 10:19:02 Outpatient [facility] [id number] [facility] 2022-08-19 00:00:00 2022-08-19 00:00:00 Outpatient [facility] V[facility] [id number] [facility] 2022-01-27 05:17:00 2022-01-27 05:17:00 Outpatient [facility]FP VFP [id number] [facility] 2021-05-04 05:24:00 2021-05-04 05:24:00 Outpatient [facility] VFP VFP [id number] [facility] 2021-04-29 03:29:00 2021-04-29 03:29:00 Outpatient [facility] VFP VFP [id number] [facility] 2021-04-26 00:00:00 2021-04-26 00:00:00 Sunita Padilla MD: [facility] [address] [address], [place] [address] , Ph. [facility]_M VFP [place] [facility] [id number] [facility] 2021-04-20 02:32:00 2021-04-20 02:32:00 Outpatient [facility] VFP VFP [id number] [facility] 2021-03-16 03:20:00 2021-03-16 03:20:00 Outpatient [facility] VFP VFP [id number] [facility] 2021-02-10 01:03:00 2021-02-10 01:03:00 Outpatient [facility]M VFP VFP [id number] [facility] 2021-02-08 09:54:00 2021-02-08 09:54:00 Outpatient [facility] VFP VFP [id number] [facility] 2021-01-30 08:36:00 2021-01-30 08:36:00 Outpatient [facility]M VFP VFP [id number] [facility] 2021-01-29 04:48:00 2021-01-29 04:48:00 Outpatient [facility]-Gor_M VFP VFP [id number] [facility] 2021-01-28 00:00:00 2021-01-28 00:00:00 Rony Lambert MD: [address] [facility], [address], [place] [address] , Ph. [facility]-G[facility]_M [facility]FP [place] [facility] [id number] [facility] 2021-01-23 06:17:00 2021-01-23 06:17:00 Outpatient Garcia-Gor_M_ WAG VFP VFP [id number] [facility] 2021-01-16 10:51:00 2021-01-16 10:51:00 Outpatient [facility]-Gor_M VFP VFP [id number] [facility] 2021-01-04 04:08:00 2021-01-04 04:08:00 Outpatient Garcia-Gor_M_ WAG VFP VFP [id number] [facility] 2020-09-27 03:18:00 2020-09-27 03:18:00 Outpatient Garcia-Gor_M_ WAG VFP VFP [id number] [facility] 2020-09-05 05:24:00 2020-09-05 05:24:00 Outpatient [facility]-Gor_M VFP VFP [id number] [facility] 2020-08-06 12:35:00 2020-08-06 12:35:00 Outpatient Garcia-Gor_M_ WAG VFP VFP [id number] [facility] 2020-08-03 09:29:00 2020-08-03 09:29:00 Outpatient Garcia-Gor_M_ WAG VFP VFP [id number] [facility] 2020-08-02 02:15:00 2020-08-02 02:15:00 Outpatient Garcia-Gor_M_ WAG VFP VFP [id number] [facility] 2020-08-01 12:40:00 2020-08-01 12:40:00 Outpatient Garcia-Gor_M_ WAG VFP VFP [id number] [facility] 2020-07-31 00:00:00 2020-07-31 00:00:00 Rony Lambert MD: [address] [address] , Ph. Garcia-Gor_M_ [facility] VFP [place] [facility]_HOU_[facility] ([facility]) [id number] [facility] 2019-11-30 11:39:01 2019-11-30 23:59:00 Outpatient R [facility] [id number] [facility] 2019-11-17 04:25:00 2019-11-17 04:25:00 Outpatient Garcia-Gor_M VFP VFP [id number] [facility] 2019-11-11 04:50:00 2019-11-11 04:50:00 Outpatient Garcia-Gor_M VFP VFP [id number] [facility] 2019-10-28 04:52:00 2019-10-28 04:52:00 Outpatient Garcia-Gor_M VFP VFP [id number] [facility] 2019-10-26 00:00:00 2019-10-26 00:00:00 Rony Lambert MD: [address] [facility], [address], [place] [address] , Ph. [facility]-Gor_M VFP [place] [facility] - VM_HOU_[facility] ([facility]) [id number] [facility] 2019-06-01 00:00:00 2019-06-01 00:00:00 Rony Lambert MD: [address], [facility] [address], [place] [address] , Ph. VFP [place] - [facility] - VFP-[place] [id number] [facility] 2019-02-09 00:00:00 2019-02-09 00:00:00 Rony Lambert MD: [address], [facility] [address], [place] [address] , Ph. VFP [place] - [facility] - [facility]FP-[place] [id number] [facility] 2018-11-16 00:00:00 2018-11-16 00:00:00 Rony Lambert MD: [address], [facility] [address], [place] [address] , Ph. [place]FP [place] - [facility] - [facility]-[place] [id number] [facility] 2017-12-22 00:00:00 2017-12-22 00:00:00 Rony Lambert MD: [address], [facility] [address], [place] [address] , Ph. VFP [place] - [facility] - [facility]-[place] [id number] [facility] 2017-11-16 00:00:00 2017-11-16 00:00:00 Rony Lambert MD: [address], [address], [place] [address] , Ph. [facility] - VFP-[place] [id number] [facility] 2017-09-23 00:00:00 2017-09-23 00:00:00 Rony Lambert MD: [address], [address], [place] [address] , Ph. [facility] - VFP-[place] [id number] [facility] 2017-05-05 00:00:00 2017-05-05 00:00:00 Rony Lambert MD: [address], [address], [place] [address] , Ph. [facility] - VFP-[place] [id number] [facility] Results Test Description Test Time Test Comments Results Result Co mments Source [facility] - Serum or [id number] 17:31:00* Test Item Value Reference Range Interpretation Comme nts HDL (test code = HDL) 36 mg/dL 40-60 L triglyceride (test code = triglyceride) 263 mg/dL 0-149 H VLDL calc. (test code = VLDL calc.) 53 mg/dL cholesterol/HDL ratio (test code = cholesterol/HDL ratio) 6.0 mg/dL non-HDL cholesterol calc. (t est code = non-HDL cholesterol calc.) 179 mg/dL 0-160 H cholesterol (test code = cholesterol) 215 mg/dL 0-199 H LDL calc. (test code = LDL calc.) 126 mg/dL 0-130 [facility] [Mass/volume] in Serum or [id number] 17:31:00 * Test Item Value Reference Range Interpretation Comme nts uric acid (test code = uric acid) 5.7 mg/dL 2.6-6.0 [facility]/Hemoglobin.total in [id number] 17:25:00* Test Item Value Reference Range Interpretation Comme nts A1C w/EAG (test code = A1C w/EAG) 7.0 % 1.0-5.7 H average blood glucose (test code = average blood glucose) 154 mg/dL [facility] 1999 panel - Serum or Plasma 2017-09-24 14:35:00* Test Item Value Reference Range Interpretation Comme [facility] ALT (test code = ALT) 20 U/L 0-55 AST (test code = AST) 19 U/L 5-34 BUN (test code = BUN) 14.0 mg/dL 9.8-20.1 alk phos (test code = alk phos) 53 unit/L 40-150 glucose (test code = glucose) 114 mg/dL 70-99 H albumin (test code = albumin) 3.9 g/dL 3.5-5.0 creatinine (test code = creatinine) 0.90 mg/dL 0.57-1.11 eGFR non- (t est code = eGFR non-) >60 >60 total bilirubin (test code = total bilirubin) 0.3 mg/dL 0.2-1.2 eGFR - (saeed t code = eGFR - ) >60 >60 sodium (test code = sodium) 140 mEq/L 136-145 potassium (test code = potassium) 5.2 mEq/L 3.5-5.1 H chloride (test code = chloride) 104 mmol/L 98-107 total protein (test code = t otal protein) 7.6 g/dL 6.4-8.3 calcium (test code = calcium) 9.6 mg/dL 8.4-10.2 CO2 (test code = CO2) 24.7 mmol/L 23.0-31.0 anion gap (test code = anion gap) 11 calc [facility] - Serum or [id number] 14:35:00* Test Item Value Reference Range Interpretation Comme [facility] HDL (test code = HDL) 46 mg/dL 40-60 triglyceride (test code = triglyceride) 195 mg/dL 0-149 H VLDL calc. (test code = VLDL calc.) 39 mg/dL cholesterol/HDL ratio (test code = cholesterol/HDL ratio) 2.9 mg/dL non-HDL cholesterol calc. (t est code = non-HDL cholesterol calc.) 89 mg/dL 0-160 cholesterol (test code = cholesterol) 135 mg/dL 0-199 LDL calc. (test code = LDL calc.) 50 mg/dL 0-130 [facility] (Vitamin B12) [Mass/volume] in Serum or Plasma 2017-09-24 14:35:00* Test Item Value Reference Range Interpretation Comme [facility] vitamin B12 (test code = vit alanis B12) 264 pg/mL 213-816 [facility] A[facility]/Hemoglobin.total in [id number] 11:27:00* Test Item Value Reference Range Interpretation Comme [facility] A1C w/EAG (test code = A1C w/EAG) 6.7 % 1.0-5.7 H average blood glucose (test code = average blood glucose) 146 mg/dL [facility] 2000 panel - Serum or Plasma 2017-05-06 09:58:00* Test Item Value Reference Range Interpretation Comme [facility] ALT (test code = ALT) 11 U/L 0-55 AST (test code = AST) 14 U/L 5-34 BUN (test code = BUN) 13.4 mg/dL 9.8-20.1 alk phos (test code = alk phos) 51 unit/L 40-150 glucose (test code = glucose) 132 mg/dL 70-99 H albumin (test code = albumin) 3.9 g/dL 3.5-5.0 creatinine (test code = creatinine) 0.93 mg/dL 0.57-1.11 eGFR non- (test code = eGFR non-) 58 mL/min/1.73m2 >60 L total bilirubin (test code = total bilirubin) 0.3 mg/dL 0.2-1.2 eGFR - (test code = eGFR - ) >60 >60 sodium (test code = sodium) 137 mEq/L 136-145 potassium (test code = potassium) 4.6 mEq/L 3.5-5.1 chloride (test code = chloride) 101 mmol/L 98-107 total protein (test code = total protein) 7.3 g/dL 6.4-8.3 calcium (test code = calcium) 9.5 mg/dL 8.4-10.2 CO2 (test code = CO2) 25.2 mmol/L 23.0-31.0 anion gap (test code = anion gap) 11 calc [facility] panel - Serum or [id number] 09:58:00* Test Item Value Reference Range Interpretation Comme nts HDL (test code = HDL) 39 mg/dL 40-60 L triglyceride (test code = triglyceride) 189 mg/dL 0-149 H VLDL calc. (test code = VLDL calc.) 38 mg/dL cholesterol/HDL ratio (test code = cholesterol/HDL ratio) 3 mg/dL non-HDL cholesterol calc. (t est code = non-HDL cholesterol calc.) 93 mg/dL 0-160 cholesterol (test code = cholesterol) 132 mg/dL 0-199 LDL calc. (test code = LDL calc.) 55 mg/dL 0-130 [id number]-Rgeddbrmuocqeo D [Mass/volume] in Serum or Plasma 2017-05-06 09:58:00* Test Item Value Reference Range Interpretation Comme nts vitamin D 25OH (test code = vitamin D 25OH) 33.7 NG/mL 30.0-96.0 [facility] (Vitamin B12) [Mass/volume] in Serum or Plasma 2017-05-06 09:58:00* Test Item Value Reference Range Interpretation Comme nts vitamin B12 (test code = vit alanis B12) 196 pg/mL 213-816 L [facility] [Mass/volume] in Serum or [id number] 09:58:00 * Test Item Value Reference Range Interpretation Comme nts uric acid (test code = uric acid) 5.6 mg/dL 2.6-6.0 [facility] [Mass/volume] in Serum or [id number] 06:34:00* Test Item Value Reference Range Interpretation Comme nts magnesium (test code = magnesium) 1.9 mg/dL 1.5-2.5 [facility]
--- NOTE | 2024-07-05 21:13 | RAD REPORT ---
EXAMINATION: US Extremity Venous Uni Ltd CLINICAL INDICATION: Female, 88 years old. PAIN RIGHT TECHNIQUE: Complete bilateral duplex sonography of the RIGHT lower extremity veins was performed. The examination included compression for vein patency, color Doppler imaging and flow augmentation in response to distal compression of the distal external iliac, common femoral, femoral, popliteal, tibi al, and great and small saphenous veins. COMPARISON: No prior exam. FINDINGS: Duplex sonography testing of the veins of the RIGHT lower extremity was performed. Color flow imaging shows all veins to be compressible with [id number] color filling. Pulsatile and phasic flow is present within all lower extremity deep and superficial veins examined. Right popliteal fossa lobulat ed anechoic cystic lesion measuring up to 2.8 cm. IMPRESSION: No evidence of deep venous thrombosis. Right popliteal fossa lobulated 2.[address]
--- NOTE | 2024-07-05 21:30 | ER ---
Nurse's Notes [facility] Name: Edna Eli Age: 88 yrs Sex: Female : 1935 Arrival Date: 07/05/2024 Time: 19:12 Bed 19 Private MD: Diagnosis: Synovial cyst of popliteal space [Yates], right knee Presentation: 07/05 19:19 Chief complaint: Patient states: right leg pain X3 weeks. i have neuropathy and drop hb foot and its not normally this painful. Coronavirus screen: Client denies travel out of the [place] in the last 14 days. At this time, the client does not indicate any symptoms associated with coronavirus-19. Ebola Screen: No symptoms or risks identified at this time. Initial Sepsis Screen: Does the patient meet any 2 criteria? No. Patient's initial sepsis screen is negative. Does the patient have a suspected source of infection? No. Patient's initial sepsis screen is negative. Risk Assessment: Do you want to hurt yourself or someone else? Patient reports no desire to harm self or others. Onset of symptoms is unknown. 19:19 Method Of Arrival: Ambulatory hb 19:19 Acuity: HOMAR 3 hb Triage Assessment: 19:22 General: Appears in no apparent distress. comfortable, Behavior is calm, cooperative. hb Pain: Complains of pain in right leg. EENT: No deficits noted. No signs and/or symptoms were reported regarding the EENT system. Neuro: No deficits noted. Fink Agitation-Sedation Scale (RASS): 0 - Alert and Calm Level of Consciousness is awake, alert, obeys commands, Oriented to person, place, time, situation. Cardiovascular: No deficits noted. Denies chest pain, shortness of breath, Capillary refill < 3 seconds Clubbing of nail beds is absent JVD is absent Patient's skin is warm and dry. Respiratory: No deficits noted. Airway is patent Respiratory effort is even, unlabored, Respiratory pattern is regular, symmetrical. GI: No deficits noted. No signs and/or symptoms were reported involving the gastrointestinal system. Abdomen is round non-distended. : No deficits noted. No signs and/or symptoms were reported regarding the genitourinary system. Derm: No deficits noted. Skin is intact, is healthy with good turgor, Skin is dry, Skin is normal, Skin temperature is warm. Musculoskeletal: Circulation, motion, and sensation intact. Range of motion: intact in all extremities, Reports pain in right leg. Historical: - Allergies: 19:22 Streptomycin; hb - Home Meds: 19:22 lisinopril 20 mg oral tablet daily [Active]; allopurinol 300 mg Oral tablet 1 tab daily hb [Active]; metoprolol tartrate 25 mg Oral tablet 1 tab 2 times per day [Active]; metformin 500 mg Oral tablet 1 tab 2 times per day [Active]; - PMHx: 19:22 diabetes mellitus; Gout; Hypercholesterolemia; Hypertensive disorder; hb - PSHx: 19:22 Total abdominal hysterectomy; hb - Immunization history:: Adult Immunizations up to date. - Infectious Disease History:: Denies. - Social history:: Smoking status: Patient denies any tobacco usage or history of. Patient/guardian denies using alcohol, street drugs. Screenin:30 [facility] ED Fall Risk Assessment (Adult) History of falling in the last 3 months, tm6 including since admission No falls in past 3 months (0 pts) Confusion or Disorientation No (0 pts) Intoxicated or Sedated No (0 pts) Impaired Gait No (0 pts) Mobility Assist Device Used Yes (1 pt) Altered Elimination No (0 pt) Score/Fall Risk Level 0 - 2 = Low Risk Oriented to surroundings, Maintained a safe environment, Educated pt \T\ family on fall prevention, incl call for assistance when getting out of bed. Abuse screen: Denies threats or abuse. Denies injuries from another. Nutritional screening: No deficits noted. Tuberculosis screening: No symptoms or risk factors identified. Assessment: 19:30 General: Appears in no apparent distress. Behavior is calm, cooperative. Pain: tm6 Complains of pain in right leg. Neuro: Level of Consciousness is awake, alert, obeys commands, Oriented to person, place, time, situation. Cardiovascular: Patient's skin is warm and dry. Respiratory: Airway is patent Respiratory effort is even, unlabored, Respiratory pattern is regular, symmetrical. GI: No signs and/or symptoms were reported involving the gastrointestinal system. Abdomen is flat, non-distended. : No signs and/or symptoms were reported regarding the genitourinary system. EENT: No signs and/or symptoms were reported regarding the EENT system. Derm: No signs and/or symptoms reported regarding the dermatologic system. Musculoskeletal: Reports pain in right leg. 21:47 Reassessment: Patient and/or family updated on plan of care and expected duration. Pain tm6 level reassessed. Patient is alert, oriented x 3, equal unlabored respirations, skin warm/dry/pink. Vital Signs: 19:19 BP 166 / 71; Pulse 81; Resp 17 S; Temp 98.2(O); Pulse Ox 99% on R/A; Weight 67.13 kg hb (R); Height 5 ft. 1 in. (R); 21:47 BP 157 / 62; Pulse 65; Resp 19; Temp 98.2; Pulse Ox 96% on R/A; MAP 90 mmHg; Pain 0/10; tm6 19:19 Body Mass Index 27.96 (67.13 kg, 154.94 cm) hb 21:47 Pain Scale: Adult tm6 ED Course: 19:14 Patient arrived in ED. im 19:22 Triage completed. hb 19:22 Arm band placed on right wrist. hb 19:25 Adin Arnold DO is Attending Physician. ms3 19:28 Kamar Mayers RN is Primary Nurse. tm6 19:30 Patient has correct armband on for positive identification. Bed in low position. Call tm6 light in reach. Side rails up X 1. Provided Education on: use of call bonilla; wait times on imaging. 20:05 Attending Physician role handed off by Adin Arnold DO rt 20:05 Imer White MD is Attending Physician. rt 20:10 Extremity Venous [employer] US In Process Unspecified. EDMS 21:46 Zeyad wrap to right knee. tm6 21:47 No provider procedures requiring assistance completed. Patient did not have IV access tm6 during this emergency room visit. Administered Medications: No medications were administered Medication: 19:30 VIS not applicable for this client. tm6 Outcome: 21:30 Discharge ordered by . rt 21:47 Discharged to home ambulatory, with family, tm6 21:47 Condition: stable 21:47 Discharge instructions given to patient, family, Instructed on discharge instructions, follow up and referral plans. Demonstrated understanding of instructions, follow-up care, 21:48 Patient left the ED. tm6 Signatures: Dispatcher [employer] EDMS Brooke Carter RN RN hb Adin Arnold DO DO ms3 Imer White MD MD rt Cathleen Montana Tawney, RN RN tm6
--- NOTE | 2024-07-05 21:30 | EDPHYS ---
Physician Documentation [facility] Name: Edna Eli Age: 88 yrs Sex: Female : 1935 Arrival Date: 07/05/2024 Time: 19:12 Bed 19 Private MD: ED Physician Imer White HPI: 07/05 19:39 This 88 yrs old Female presents to ER via Ambulatory with complaints of Leg Pain - ms3 right. 19:39 88-year-old female with past medical history of diabetes, gout, hypercholesterolemia, ms3 hypertension presents to the emergency department for right leg pain. Patient states she is not currently experiencing pain. Patient states she has had chronic right leg pain however over the last 3 weeks her pain has become worse.. Historical: - Allergies: 19:22 Streptomycin; hb - Home Meds: 19:22 lisinopril 20 mg oral tablet daily [Active]; allopurinol 300 mg Oral tablet 1 tab daily hb [Active]; metoprolol tartrate 25 mg Oral tablet 1 tab 2 times per day [Active]; metformin 500 mg Oral tablet 1 tab 2 times per day [Active]; - PMHx: 19:22 diabetes mellitus; Gout; Hypercholesterolemia; Hypertensive disorder; hb - PSHx: 19:22 Total abdominal hysterectomy; hb - Immunization history:: Adult Immunizations up to date. - Infectious Disease History:: Denies. - Social history:: Smoking status: Patient denies any tobacco usage or history of. Patient/guardian denies using alcohol, street drugs. ROS: 19:39 Constitutional: Negative for fever, and chills. Cardiovascular: Negative for chest ms3 pain, and palpitations. Respiratory: Negative for shortness of breath, cough, wheezing, and pleuritic chest pain, Abdomen/GI: Negative for abdominal pain, nausea, vomiting, diarrhea, and constipation, 19:39 Skin: Negative for injury, rash, and discoloration, 19:39 MS/extremity: Positive for pain, of the right leg, Exam: 19:39 Constitutional: This is a well developed, well nourished patient who is awake, alert, ms3 and in no acute distress. Chest/axilla: Normal chest wall appearance and motion. Nontender with no deformity. Cardiovascular: Regular rate and rhythm with a normal S1 and S2. No gallops, murmurs, or rubs. Normal PMI, no JVD. No pulse deficits. Respiratory: Lungs have equal breath sounds bilaterally, clear to auscultation and percussion. No rales, rhonchi or wheezes noted. No increased work of breathing, no retractions or nasal flaring. Abdomen/GI: Soft, non-tender, with normal bowel sounds. No distension or tympany. No guarding or rebound. No evidence of tenderness throughout. Skin: Warm, dry with normal turgor. Normal color with no rashes, no lesions, and no evidence of cellulitis. 19:39 Musculoskeletal/extremity: Extremities: noted in the right leg: Vital Signs: 19:19 BP 166 / 71; Pulse 81; Resp 17 S; Temp 98.2(O); Pulse Ox 99% on R/A; Weight 67.13 kg hb (R); Height 5 ft. 1 in. (R); 21:47 BP 157 / 62; Pulse 65; Resp 19; Temp 98.2; Pulse Ox 96% on R/A; MAP 90 mmHg; Pain 0/10; tm6 19:19 Body Mass Index 27.96 (67.13 kg, 154.94 cm) hb 21:47 Pain Scale: Adult tm6 MDM: 19:38 Patient medically screened. ms3 19:39 Differential diagnosis: DVT vs Leg pain. ms3 20:09 Transition of care: After a detail discussion of the patient's case, care is ms3 transferred to Imer White MD. 21:55 Data reviewed: vital signs, nurses notes, radiologic studies. Counseling: I had a rt detailed discussion with the patient and/or guardian regarding the historical points, exam findings, and any diagnostic results supporting the discharge/admit diagnosis, radiology results, the need for outpatient follow up. Response to treatment: the patient's symptoms have resolved after treatment, the patient's pain is gone. 07/05 19:39 Order name: Extremity Venous [employer] US; Complete Time: 21:21 ms3 07/05 21:29 Order name: Zeyad Wrap; Complete Time: 21:46 rt Administered Medications: No medications were administered Disposition Summary: 07/05/24 21:30 Discharge Ordered Notes: Location: Home rt Problem: new rt Symptoms: have improved rt Condition: Stable rt Diagnosis - Synovial cyst of popliteal space [Yates], right knee rt Followup: rt - With: Private Physician - When: 2 - 3 days - Reason: Discharge Instructions: - Discharge Summary Sheet rt - Yates Cyst rt Forms: - Medication Reconciliation Form rt - Antibiotic Education rt - Prescription Opioid Use rt - Patient Portal Instructions rt - Leadership Thank You Letter rt Signatures: Dispatcher [employer] Brooke Dinero, RN RN Adin Ruffin DO DO ms3 Imer White MD MD rt Corrections: (The following items were deleted from the chart) 19:40 19:40 Extremity Venous Uni [employer]+[email or web address] ordered. EDMS EDMS
[2024-07-05 22:26] VITALS: TEMP 98.2
[2024-07-05 22:28] VITALS: BP 157/62; O2SAT 96
== END 2024-07-05 21:48 | disposition home or self-care (01) ==
LOC: ER 19:12
DX: M71.21 Synovial cyst of popliteal space [Baker], right knee (principal); E11.9 Type 2 diabetes mellitus without complications; I10 Essential (primary) hypertension
CPT/HCPCS: 93971; 99283